=== PATIENT | male | born 1960 | race Caucasian/White ===

== ENCOUNTER 2019-12-11 15:37 | Observation (INO) ==
[2019-12-11] MEDS ORDERED: *HR* Heparin 5,000 UNIT/ML VIAL IVP PRN ×2 (18:50)
[2019-12-11] MEDS ORDERED: *HR* Heparin 5,000 UNIT/ML VIAL IVP ONE (18:50)
[2019-12-11] MEDS ORDERED: Heparin 25,000 UNIT/250 ML D5W 25,000 UNIT/250 ML IV.SOLN IVC SCH (19:00)
[2019-12-11 19:39] LABS: Hematocrit 32.5 % (37.5-50.1); Hemoglobin 11.6 g/dL (12.9-16.9); INR 1.3; Immature Platelets 2.8 % (1.1-6.1); Mean Corpuscular HGB Conc 35.7 g/dL (31.6-35.5); Mean Corpuscular Hemoglobin 33.3 pg (28.0-33.3); Mean Corpuscular Volume 93.4 fL (83.0-100.0); Mean Platelet Volume 10.6 fL (9.4-12.4); Prothrombin Time 15.1 Seconds (9.4-12.1); Red Blood Count 3.48 M/mcL (4.19-5.50); Red Cell Distribution Width 16.9 % (11.5-14.5)
[2019-12-11] MEDS ORDERED: Naloxone 0.4 MG/ML INJ IVP PRN (20:08)
[2019-12-11] MEDS ORDERED: D5% in Water 1,000 ML IVC PRN (20:09)
[2019-12-11] MEDS ORDERED: *HR* Dextrose 50 % in Water (Syg) 50 ML SYRINGE IVP PRN (20:09)
[2019-12-11] MEDS ORDERED: Dextrose Gel 15 GM/37.5 ML TUBE PO PRN ×2 (20:09)
[2019-12-11 20:38] LABS: BUN/Creatinine Ratio 15 (6-26); Blood Urea Nitrogen 22 mg/dL (8-23); Calcium 9.5 mg/dL (8.6-10.3); Carbon Dioxide 21 mEq/L (23-29); Chloride 102 mEq/L (98-107); Glucose 146 mg/dL (70-105); Osmolality,Calculated 282 (280-300); Potassium 5.2 mEq/L (3.5-5.1); Sodium 133 mEq/L (136-145); eGFR For African Americans > 60 (> 60); eGFR For Non-African Americans 51 (> 60)
[2019-12-12 02:35] LABS: Basophils % 0.2 %; Red Cell Distribution Width 16.7 % (11.5-14.5)
[2019-12-12 02:37] LABS: Hematocrit 29.4 % (37.5-50.1); Hemoglobin 10.3 g/dL (12.9-16.9); Immature Platelets 2.7 % (1.1-6.1); Lymphocytes # 0.4 K/mcL (0.6-4.6); Mean Corpuscular Hemoglobin 33.1 pg (28.0-33.3); Mean Corpuscular Volume 94.5 fL (83.0-100.0); Mean Platelet Volume 10.7 fL (9.4-12.4); Monocytes # 0.1 K/mcL (0.0-1.3); Monocytes % 1.5 %; Neutrophils # 5.4 K/mcL (1.6-8.9); Red Blood Count 3.11 M/mcL (4.19-5.50); Segmented Neutrophils % 90.3 %
[2019-12-12 02:38] LABS: Platelet Count 64 K/mcL (140-400)
[2019-12-12 02:43] LABS: Albumin 3.3 g/dL (3.5-5.7); Bilirubin,Total 1.9 mg/dL (0.3-1.0); Calcium 8.9 mg/dL (8.6-10.3); Globulin 3.2 g/dL (2.4-3.5); Magnesium 2.2 mg/dL (1.6-2.6); Potassium 4.9 mEq/L (3.5-5.1); Total Protein 6.5 g/dL (6.4-8.9)
[2019-12-12] MEDS ORDERED: Insulin LISPRO 300 UNITS/3 ML VIAL SQ SCH (07:30)
[2019-12-12] MEDS ORDERED: Perflutren Lipid Microsphere 1.3 ML in 0.9 % Sodium Chloride 8.7 ML IVP ONE (07:58)
[2019-12-12] MEDS: Aspirin Enteric Coated 325 MG Tablet PO SCH (11:05)
[2019-12-12] MEDS ORDERED: Magnesium Oxide 400 MG TABLET PO SCH (14:00)
[2019-12-13 04:50] LABS: Basophils % 0.2 %; Hemoglobin 9.7 g/dL (12.9-16.9)
[2019-12-13 04:52] LABS: Eosinophils % 0.5 %; Hematocrit 28.6 % (37.5-50.1); Immature Platelets 2.4 % (1.1-6.1); Lymphocytes # 1.1 K/mcL (0.6-4.6); Mean Corpuscular HGB Conc 33.9 g/dL (31.6-35.5); Mean Corpuscular Hemoglobin 32.9 pg (28.0-33.3); Mean Corpuscular Volume 96.9 fL (83.0-100.0); Mean Platelet Volume 10.4 fL (9.4-12.4); Monocytes # 0.5 K/mcL (0.0-1.3); Monocytes % 6.6 %; Red Blood Count 2.95 M/mcL (4.19-5.50); Segmented Neutrophils % 78.7 %; White Blood Count 8.2 K/mcL (4.3-11.1)
[2019-12-13 05:02] LABS: BUN/Creatinine Ratio 20 (6-26); Blood Urea Nitrogen 29 mg/dL (8-23); Calcium 8.7 mg/dL (8.6-10.3); Carbon Dioxide 24 mEq/L (23-29); Chloride 98 mEq/L (98-107); Glucose 98 mg/dL (70-105); Osmolality,Calculated 278 (280-300); Potassium 4.2 mEq/L (3.5-5.1); Sodium 131 mEq/L (136-145); eGFR For African Americans > 60 (> 60); eGFR For Non-African Americans 50 (> 60)
[2019-12-13 05:04] LABS: Neutrophils # 6.5 K/mcL (1.6-8.9)
[2019-12-13 05:05] LABS: Platelet Count 72 K/mcL (140-400)
[2019-12-13 05:29] LABS: Platelet Estimate Decreased (Normal)
[2019-12-13 07:06] VITALS: BP 99/63
[2019-12-13] MEDS ORDERED: *HR* Rivaroxaban 15 MG TABLET PO ONE (07:58)
[2019-12-13] MEDS: Aspirin Enteric Coated 325 MG Tablet PO SCH (10:51)
== END 2019-12-13 11:22 | disposition home or self-care (01) ==
LOC: EMEROOARM 15:37 → 3BNU 15:37 → SUATTDRO 19:43 → 3BNU 21:10
PROVIDERS: ADMIT Student in an Organized Health Care Education/Training Program; ATTEND Internal Medicine